=== PATIENT | male | born 1970 | race Two or more races ===

== ENCOUNTER 2018-10-12 08:41 | Emergency (ER) | payer OTHER ==
[~2018-10-12] VITALS: Ht 185.4 cm; Wt 94.8 kg
[2018-10-12 08:41] VITALS: BP 156/110
[2018-10-12] MEDS ORDERED: LIDOCAINE HCL/PF 1% 30 ML VIAL TP ONE (09:00)
[2018-10-12] MEDS ORDERED: LIDOCAINE 1% INJ 50 ML MDV IJ ONE (09:12)
[2018-10-12] MEDS ORDERED: HYDROCODONE/APAP 10/325MG 1 EA TABLET ONE (09:12)
[2018-10-12] MEDS ORDERED: HYDROCODONE/APAP 10/325MG 1 EA TABLET PO ONE (09:30)
== END 2018-10-12 09:34 | disposition home or self-care (01) ==
LOC: ER 08:41
DX: S60.041A Contusion of right ring finger without damage to nail, initial encounter (principal); S60.051A Contusion of right little finger without damage to nail, initial encounter; I10 Essential (primary) hypertension; Z88.0 Allergy status to penicillin; Z60.2 Problems related to living alone; W23.0XXA Caught, crushed, jammed, or pinched between moving objects, initial encounter; Y93.89 Activity, other specified; Y92.89 Other specified places as the place of occurrence of the external cause; Y99.8 Other external cause status
CPT/HCPCS: 73120; 99283; J3490 ×2